=== PATIENT | female | born 1985 | race Caucasian/White ===

== ENCOUNTER 2017-06-12 07:28 | Observation (INO) | payer BC ==
[2017-06-12] MEDS ORDERED: NORMAL SALINE 1,000 ML IV ONE (07:41)
[2017-06-12] MEDS ORDERED: HYDROmorphone HCL 1 MG/ML DISP.SYRIN IV ONE (07:41)
[2017-06-12] MEDS ORDERED: ONDANSETRON HCL/PF 2 MG/ML VIAL IV ONE (07:41)
--- NOTE | 2017-06-12 07:47 | ERNOTE ---
<Ronaldo Cehn - Last Filed: 06/12/17 07:42> Abdominal HPI - Narrative Date of Service: 06/12/17 - General Chief Complaint: Abdominal Pain Time Seen by Provider: 06/12/17 07:34 Source: patient - Immun/Allergies/Home Medications Allergies/Adverse Reactions: Allergies aripiprazole [From Abilify] Adverse Reaction (Intermediate, Verified 06/12/17 07 :35) sleepy methylprednisolone [From Medrol (Raúl)] Adverse Reaction (Intermediate, Verified 06/12/17 07:35) CHEST PAIN Home Medications: HOME MEDICATIONS Valacyclovir HCl [Valtrex] 1,000 mg PO PRN 03/26/12 [Last Taken 12/29/12 08:00 1 tab] Escitalopram Oxalate [Lexapro] 10 mg PO DAILY 06/12/17 [Last Taken Unknown] - History of Present Illness Narrative: This is a 31-year-old female who comes to the emergency department complaining of abdominal pain and vomiting. Patient says she really hasn't had much of an appetite for the last week. Yesterday for lunch she had popcorn chicken. Shortly after eating she developed severe right lower quadrant abdominal pain associated with nausea and vomiting. She vomited but did not feel any better. The pain persisted. She has children at home so she was unable to come to the hospital. She says she feels like she had a fever. It hurts more when she walks, goes over bumps, moves. Better when she lays still. The pain does not radiate anywhere. She has had no hematuria or dysuria. She did have a surgery to get tubal ligation a few months back. The patient denies having shortness of breath or chest pain. No sore throat or runny nose. No recent sick contacts. Bowels have been moving normally. Pain persisted all night seems to be getting a bit worse multiple episodes of vomiting overnight. Has not moved Review of Systems - Review of Systems Constitutional: Present: fever, malaise, other EYE: Present: no symptoms reported ENT: Present: no symptoms reported - subjective fever Respiratory: Present: no symptoms reported Cardiology: Present: no symptoms reported Gastrointestinal/Abdominal: Present: See HPI, nausea, vomiting, abdominal pain, eating less Genitourinary: Present: no symptoms reported Musculoskeletal: Present: no symptoms reported Skin: Present: no symptoms reported Neurological: Present: no symptoms reported Endocrine: Present: no symptoms reported Hematologic/Lymphatic: Present: no symptoms reported Psych: Present: no symptoms reported All Other Systems: All systems neg except as marked - Patient's Past Medical History Patient History - Medical: No pertinent hx Patient History - Cardiac/Respiratory: No pertinent hx Patient History - Cancer: No Hx of Cancer Patient History - Surgical Procedures: Other, Tubal Ligation - Social History Living Situations: home Psych History: No pertinent hx Alcohol Use: none Drug Use: none Physical Exam - Physical Exam General Appearance: Present: wd/wn, alert, no apparent distress Head Exam: Present: normal inspection, no evidence of injury Eye Exam: Normal inspection: bilateral, PERRL: bilateral, EOMI: bilateral Ears, Nose, Throat: Present: normal ENT inspection, normal pharynx Neck: Present: normal inspection, nontender Respiratory: Present: no respiratory distress, normal breath sounds, no accessory muscle use, chest nontender, lungs clear Cardiovascular/Chest: Present: regular rate, rhythm, no murmur, normal peripheral pulses Gastrointestinal/Abdominal: Present: other - patient has positive rales fixed positive heeltap positive obturator positive so as positive pain at McBurney's point positive voluntary and involuntary guarding. Positive rebound. The remainder of the abdomen is soft. Specifically no tenderness in the gallbladder fossa. Negative Jacob sign. Bowel sounds are present Rectal Exam: Present: deferred Back Exam: Present: normal inspection, normal range of motion, no CVA tenderness , no vertebral tenderness Extremity Exam: Present: normal inspection, non-tender, normal range of motion, no edema Neurological Exam: Present: alert, oriented, normal mood/affect, no motor/ sensory deficits Skin Exam: Present: normal color, warm/dry Lymphatic Exam: Present: no adenopathy ED Progress - Vital Signs Vital Signs: Vital Signs 06/12/17 06/12/17 07:31 07:36 Temperature 37.3 C Pulse Rate 95 93 Respiratory 12 12 Rate Blood Pressure 114/82 114/82 O2 Sat by Pulse 98 98 Oximetry - Progress/Reassessment Chief Complaint: Abdominal Pain - Transfer of Care Physician Sign Out: Ronaldo Chen Brief History: 31-year-old female right lower quadrant abdominal pain and vomiting since 1:30 yesterday. Very suspicious for appendicitis. Labs are pending. She will need a CAT scan. Receiving Physician: Shay Carrillo Pending Results: CT/MRI results, Labs, Pain-control, Physician/consult arrival Expected Disposition: Admit Departure Clinical Impression: Acute appendicitis - Departure Disposition: Still a patient Condition: Fair Referrals: Prisca Zheng DO [Primary Care Provider] - <Shay Carrillo - Last Filed: 06/12/17 10:35> ED Progress - Date and Time Seen: Date and Time: 06/12/17 10:33 CT demonstrated acute appendicitis with fecaliths. Dr. Ellis and was made aware. - Vital Signs Vital Signs: Vital Signs 06/12/17 06/12/17 06/12/17 07:31 07:36 08:01 Temperature 37.3 C 36.9 C Pulse Rate 95 93 81 Respiratory 12 12 14 Rate Blood Pressure 114/82 114/82 117/68 O2 Sat by Pulse 98 98 100 Oximetry 06/12/17 06/12/17 06/12/17 08:21 08:30 09:00 Temperature 37.2 C Pulse Rate 98 87 71 Respiratory 15 17 14 Rate Blood Pressure 129/69 129/69 126/66 O2 Sat by Pulse 98 98 99 Oximetry 06/12/17 09:30 Temperature Pulse Rate 74 Respiratory 17 Rate Blood Pressure 130/78 O2 Sat by Pulse 100 Oximetry Plan - Plan Plan: Patient will be transferred to Dr. Ng service the operating room for intervention.
[2017-06-12] MEDS ORDERED: ONDANSETRON HCL/PF 2 MG/ML VIAL ONE (07:51)
[2017-06-12] MEDS ORDERED: HYDROmorphone HCL 2 MG/ML VIAL ONE (07:51)
[2017-06-12 07:57] LABS: Hematocrit 41.6 % (37.0-47.0); Mean Cell Volume 87.6 fl (78-100); Mean Corpuscular Hemoglobin 29.5 pg (27-31); Mean Corpuscular Hgb Conc 33.7 g/dl (32-36); Mean Platelet Volume 9.8 fl (6.0-9.5); Neutrophil # 17.3 K/mm3 (1.3-6.0); Neutrophil % 86.5 % (42-75.0); Platelet Count 277 K/mm3 (150-450); Red Blood Count 4.75 M/mm3 (4.2-5.4); Red Cell Distribution Width 12.7 % (11.5-14.0)
[2017-06-12 08:12] LABS: Albumin * 4.1 gm/dl (3.4-5.0); Anion Gap 14.8 mmol/L (6.8-13.8); BUN/Creatinine Ratio 10.7 (9.0-21.6); Bilirubin, Total 0.5 mg/dL (0.0-1.1); Ca. Corrected For Albumin 8.7 mg/dL (8.4-10.2); Calcium * 9.1 mg/dL (7.9-10.9); Carbon Dioxide 27.6 mmol/L (24-32.6); Potassium 3.4 mmol/L (3.4-4.6); Total Protein 8.2 gm/dL (6.2-8.2)
[2017-06-12] MEDS ORDERED: DIATRIZOATE MEGLUMINE, SODIUM 30 ML BTL ONE (08:28)
[2017-06-12] MEDS ORDERED: DIATRIZOATE MEGLUMINE, SODIUM 30 ML BTL PO ONE (08:32)
[2017-06-12] MEDS ORDERED: KETOROLAC TROMETHAMINE 30 MG/ML VIAL ONE (09:25)
[2017-06-12] MEDS ORDERED: KETOROLAC TROMETHAMINE 30 MG/ML VIAL IV ONE (09:27)
[2017-06-12] MEDS ORDERED: HYDROmorphone HCL 2 MG/ML VIAL IV ONE (09:27)
[2017-06-12] MEDS ORDERED: METOCLOPRAMIDE HCL 5 MG/ML VIAL IV ONE (09:41)
[2017-06-12] MEDS ORDERED: METOCLOPRAMIDE HCL 5 MG/ML VIAL ONE (09:44)
[2017-06-12 10:47] LABS: Urine Bilirubin Negative (NEGATIVE); Urine Ketone Negative (NEGATIVE); Urine Protein Negative (NEGATIVE); Urine Specific Gravity 1.015 SP.GR. (1.005-1.010); Urine Urobilinogen Normal (NORMAL); Urine pH 6.5 pH (5.0-7.0)
[2017-06-12 11:01] LABS: Urine Appearance Clear (CLEAR); Urine Blood 5 /ul (NEGATIVE); Urine Color Yellow; Urine Nitrite Positive (NEGATIVE)
[2017-06-12 11:02] LABS: Urine Bacteria 2+; Urine RBC 0-5 /hpf (0-5); Urine WBC 0-5 /hpf (0-5)
[2017-06-12] MEDS ORDERED: RINGER'S SOLUTION,LACTATED 1,000 ML IV ONE ×3 (11:24→12:42)
[2017-06-12] MEDS ORDERED: CEFOXITIN SODIUM 2 GM in DEXTROSE 5 % IN WATER 100 ML IV ONE ×2 (11:24)
--- NOTE | 2017-06-12 11:39 | HP ---
Chief Complaint - Chief Complaint Date of Service: 06/12/17 Time of Service: 11:33 Chief Complaint: abdominal pain and vomiting History of Present Illness: Started having N/V yesterday, then abdominal pain that moved to right side and got worse. Seen in ER and found to have RLQ tenderness with CT scan showing acute appendicitis - Patient's Past Medical History Patient History - Medical: No pertinent hx Patient History - Cardiac/Respiratory: No pertinent hx Patient History - Cancer: No Hx of Cancer Patient History - Surgical Procedures: Other, Tubal Ligation - Family History Family History:: no untoward family reactions to anesthesia, no familial bleeding tendencies - Social History Living Situations: home Psych History: No pertinent hx Alcohol Use: none Drug Use: none Review Of Systems (GEN) - Review of Systems Generalized/Overall Review: Present: Malaise. Absent: Chills, Fever EENTM: Present: No Symptoms Reported Respiratory: Present: No Symptoms Reported Cardiac: Present: No Symptoms Reported Abdominal: Present: Other - pain, N/V Genitourinary: Present: No Symptoms Reported Musculoskeletal: Present: No Symptoms Reported Neurological: Present: No Symptoms Reported Skin: Present: No Symptoms Reported Endocrine: Present: No Symptoms Reported Misc: All systems neg except as marked Allergies/Adverse Reactions: Allergies Allergy/AdvReac Type Severity Reaction Status Date / Time aripiprazole [From Abilify] AdvReac Intermediate Verified 06/12/17 07:35 methylprednisolone AdvReac Intermediate CHEST PAIN Verified 06/12/17 07:35 [From Medrol (Raúl)] Home Medications: HOME MEDICATIONS Valacyclovir HCl [Valtrex] 1,000 mg PO PRN 03/26/12 [Last Taken 12/29/12 08:00 1 tab] Escitalopram Oxalate [Lexapro] 10 mg PO DAILY 06/12/17 [Last Taken Unknown] Exam - Exam Vital Signs: Vital Signs - Last Taken Temp 37.4 C 06/12/17 11:10 Pulse 74 06/12/17 11:10 Resp 14 06/12/17 11:10 BP 110/70 06/12/17 11:10 Pulse Ox 98 06/12/17 11:10 Constitutional: Present: Alert, Oriented x3, Cooperative, Well developed, Well nourished, Mild distress ENT Exam: Present: normal ENT inspection, other - black tongue Eye Exam: bilateral eye: normal inspection Neck: Present: full range of motion, normal inspection Back Exam: Present: no vertebral tenderness Breasts: Present: Exam deferred Respiratory: Present: lungs clear, normal breath sounds Cardiovascular/Chest: Present: normal peripheral pulses, regular rate, rhythm, no edema, no murmur Peripheral Pulses: dorsalis-pedis (R): 4+, dorsalis-pedis (L): 4+, radial (R): 4 +, radial (L): 4+ Abdomen: Present: other - tender RLQ with rebound Extremity: Present: normal range of motion, normal inspection, no pedal edema, no calf tenderness Skin Exam: Present: normal color, warm/dry Neurologic: Present: lead database administrator II-XII nml as tested, normal cerebellar test, no motor/ sensory deficits Appearance: Present: appropriate appearance, appropriate insight Eye contact: Present: cooperative, good eye contact, normal speech Thoughts: Present: normal thought pattern Diagnostic Studies: Abnormal Lab Results 06/12/17 06/12/17 06/12/17 Range/Units 07:48 07:48 10:40 WBC 20.0 H (4.0-10.5) K/mm3 MPV 9.8 H (6.0-9.5) fl Immature Gran % (Auto) 0.50 H (0.001-0.429) % Immature Gran # (Auto) 0.11 H (0.000-0.0310) K/mm3 Neutrophils % 86.5 H (42-75.0) % Lymphocytes % 5.4 L (20-51) % Neutrophils # 17.3 H (1.3-6.0) K/mm3 Lymphocytes # 1.09 L (1.5-3.5) k/mm3 Monocytes # 1.5 H (0.0-1.0) k/mm3 Sodium 143 H (132-142) mmol/L Plasma Sodium 144 H (130-142) mmol/L Anion Gap 14.8 H (6.8-13.8) mmol/L Random Glucose 154 H (70-110) mg/dL Lipase 51 L (73-393) U/L Urine Blood 5 H (NEGATIVE) /ul Urine Nitrate Positive H (NEGATIVE) Urine Bacteria 2+ H (NONE) Laboratory Results WBC 20.0 K/mm3 (4.0-10.5) H 06/12/17 07:48 RBC 4.75 M/mm3 (4.2-5.4) 06/12/17 07:48 Hgb 14.0 gm/dL (12.5-16.0) 06/12/17 07:48 Hct 41.6 % (37.0-47.0) 06/12/17 07:48 MCV 87.6 fl (78-100) 06/12/17 07:48 MCH 29.5 pg (27-31) 06/12/17 07:48 MCHC 33.7 g/dl (32-36) 06/12/17 07:48 RDW 12.7 % (11.5-14.0) 06/12/17 07:48 Plt Count 277 K/mm3 (150-450) 06/12/17 07:48 MPV 9.8 fl (6.0-9.5) H 06/12/17 07:48 Immature Gran % (Auto) 0.50 % (0.001-0.429) H 06/12/17 07:48 Immature Gran # (Auto) 0.11 K/mm3 (0.000-0.0310) H 06/12/17 07:48 Neutrophils % 86.5 % (42-75.0) H 06/12/17 07:48 Lymphocytes % 5.4 % (20-51) L 06/12/17 07:48 Monocytes % 7.5 % (0.0-9) 06/12/17 07:48 Eosinophils % 0.0 % (0.0-3.0) 06/12/17 07:48 Basophils % 0.1 % (0.0-1.0) 06/12/17 07:48 Nucleated RBC % 0.0 k/mm3 (0-1) 06/12/17 07:48 Neutrophils # 17.3 K/mm3 (1.3-6.0) H 06/12/17 07:48 Lymphocytes # 1.09 k/mm3 (1.5-3.5) L 06/12/17 07:48 Monocytes # 1.5 k/mm3 (0.0-1.0) H 06/12/17 07:48 Eosinophils # 0.0 k/mm3 (0.0-0.7) 06/12/17 07:48 Absolute Basophils 0.0 k/mm3 (0.0-0.1) 06/12/17 07:48 Sodium 143 mmol/L (132-142) H 06/12/17 07:48 Plasma Sodium 144 mmol/L (130-142) H 06/12/17 07:48 Potassium 3.4 mmol/L (3.4-4.6) 06/12/17 07:48 Chloride 104 mmol/L (97-106) 06/12/17 07:48 Carbon Dioxide 27.6 mmol/L (24-32.6) 06/12/17 07:48 Anion Gap 14.8 mmol/L (6.8-13.8) H 06/12/17 07:48 BUN 8 mg/dL (3-23) 06/12/17 07:48 Creatinine 0.75 mg/dL (0.4-1.4) 06/12/17 07:48 Est GFR (Non-Af Amer) 95 mL/min (60-130) 06/12/17 07:48 BUN/Creatinine Ratio 10.7 (9.0-21.6) 06/12/17 07:48 Random Glucose 154 mg/dL (70-110) H 06/12/17 07:48 Calcium 9.1 mg/dL (7.9-10.9) 06/12/17 07:48 Calcium Adj for Albumin 8.7 mg/dL (8.4-10.2) 06/12/17 07:48 Total Bilirubin 0.5 mg/dL (0.0-1.1) 06/12/17 07:48 AST 16 U/L (0-48) 06/12/17 07:48 ALT 20 U/L (19-67) 06/12/17 07:48 Alkaline Phosphatase 72 U/L (50-170) 06/12/17 07:48 Total Protein 8.2 gm/dL (6.2-8.2) 06/12/17 07:48 Albumin 4.1 gm/dl (3.4-5.0) 06/12/17 07:48 Lipase 51 U/L (73-393) L 06/12/17 07:48 Urine Color Yellow 06/12/17 10:40 Urine Appearance Clear (CLEAR) 06/12/17 10:40 Urine pH 6.5 pH (5.0-7.0) 03/23/18 10:40 Ur Specific [place] 1.015 SP.GR. (1.005-1.010) 06/12/17 10:40 Urine Protein Negative mg/dL (NEGATIVE) 06/12/17 10:40 Urine Glucose (UA) Negative mg/dL (NEGATIVE) 06/12/17 10:40 Urine Ketones Negative mg/dL (NEGATIVE) 06/12/17 10:40 Urine Blood 5 /ul (NEGATIVE) H 06/12/17 10:40 Urine Nitrate Positive (NEGATIVE) H 06/12/17 10:40 Urine Bilirubin Negative mg/dl (NEGATIVE) 06/12/17 10:40 Urine Urobilinogen Normal EU/dl (NORMAL) 06/12/17 10:40 Ur Leukocyte Esterase Negative /ul (NEGATIVE) 06/12/17 10:40 Urine RBC 0-5 /hpf (0-5) 06/12/17 10:40 Urine WBC 0-5 /hpf (0-5) 06/12/17 10:40 Ur Epithelial Cells None seen /hpf (0-5) 06/12/17 10:40 Urine Bacteria 2+ (NONE) H 06/12/17 10:40 Urine Culture Comments Culture to follow 06/12/17 10:40 Assessment/Plan - Assessment/Plan (1) Acute appendicitis Assessment: Explained appendicitis and appendectomy. Risks and possible complications of surgery outlined. Expected course explained. Questions answered to her apparent satisfaction and informed consent for appendectomy obtained. Chlorhexidine wipes, IV Mefoxin, SCD's Problem: Acute
[2017-06-12] MEDS ORDERED: BUPIVACAINE HCL/EPINEPHRINE 50 ML VIAL IJ ONE ×2 (12:05)
[2017-06-12] MEDS ORDERED: MUPIROCIN 22 APPL TUBE TP ONE (12:48)
[2017-06-12] MEDS ORDERED: RINGER'S SOLUTION,LACTATED 1,000 ML IV PRN (13:06)
[2017-06-12] MEDS ORDERED: MORPHINE SULFATE 2 MG/ML DISP.SYRIN IV PRN (13:06)
--- NOTE | 2017-06-12 16:02 | OR ---
Operative Report - Dictated Report Narrative: Date of operation 06/12/2017 Preoperative diagnosis: Acute appendicitis Postoperative diagnosis: Acute appendicitis with localized peritonitis Operation: Laparoscopic appendectomy Surgeon: FELIX Sandoval MD Anesthesia: Gen. viviana Fritz CRNA Indications for procedure: The patient is a 31-year-old female who presented to the emergency room with a one-day history of nausea vomiting and abdominal pain which migrated to the right side of the abdomen. She was found to have direct and rebound right lower quadrant tenderness, elevated white blood cell count, and CT scan evidence of acute appendicitis. Findings: Acute appendicitis with localized peritonitis Narrative of procedure: The patient was identified preoperatively, and prior to the administration of anesthetic a multidisciplinary timeout was observed. The patient was placed supine, SCDs were applied, and 2 g of intravenous Mefoxin administered. General endotracheal anesthetic was administered. The patient's abdomen was prepped with Betadine solution, and a generous operating field outlined with 4 sterile towels. The remainder the patient was covered with a sterile disposable drape. A transverse infraumbilical skin incision was made, and dissection was carried along the umbilical stalk until the fascia of the linea alba was encountered. This was incised. The peritoneum was elevated and incised to allow entry into the abdomen under direct vision. A Hussan cannula was placed and the abdomen insufflated with CO2. The laparoscopic camera was introduced and the abdomen briefly explored. Those portions of the liver, stomach, small bowel, and colon visualized appeared normal. There was dark clear fluid in the pelvis. The appendix was not immediately visible. Next under direct vision, 2 additional working ports were inserted through separate skin incisions, one in the suprapubic midline above the bladder and one in the left lower quadrant. The pelvis was suctioned clean and a previous tubal ligation clip on the right tube could be visualized. The apex of the cecum was grasped and retracted cephalad revealing an acutely inflamed appendix with exudate and adherent omentum. The tip of the appendix was grasped and retracted allowing blunt dissection of the omentum from the appendix. The lateral peritoneal attachment of the mesoappendix was then divided and the appendix traced to the base. By retraction/elevation the appendix and mesoappendix were seen to be amenable to division with a MAYNOR stapling device. This was applied across the mesoappendix and then across the base of the appendix. The appendix was parked in the right lower quadrant. The stump of the appendix was seen to be gas and liquid tight. There was a small bleeding vessel on the mesoappendix staple line which was controlled with the brief application of electrocautery. The area was suctioned clean and appeared hemostatic. The pelvis was again suctioned clean. Appendix was then placed in an Endobag. The small working ports were then withdrawn under direct vision to ensure entry site hemostasis. The appendix was removed in conjunction with the Hussan cannula. The pneumoperitoneum was allowed to escape , and after receiving a correct sponge needle and instrument count attention was turned to closing the abdomen. The fascia and peritoneum at the umbilicus were approximated with interrupted sutures of #1 Vicryl. Skin incisions were approximated with interrupted vertical mattress sutures of 4-0 nylon. The operative sites were washed and dried. Dressings of Bactroban ointment and large Band-Aids were applied to the small port sites. The umbilical incision was dressed with Bactroban ointment, 2 x 2, large Band-Aid, and Medipore tape. The operative procedure was terminated at this point. There was no measurable blood loss. 0.5% Marcaine with epinephrine was used for local anesthetic infiltration area the appendix was submitted to pathology. The patient tolerated the anesthetic and procedure well without complication and was transferred to the recovery room awake, extubated, and in stable condition. Reviewed and electronically signed
[2017-06-12] MEDS: CEFOXITIN SODIUM 1 GM in DEXTROSE 5 % IN WATER 100 ML IV SCH ×4 (17:33→22:27)
[2017-06-12] MEDS: oxyCODONE HCL/ACETAMINOPHEN 1 TAB TABLET PO PRN (18:55)
[2017-06-13] MEDS: oxyCODONE HCL/ACETAMINOPHEN 1 TAB TABLET PO PRN ×3 (02:12→10:53)
[2017-06-13] MEDS: CEFOXITIN SODIUM 1 GM in DEXTROSE 5 % IN WATER 100 ML IV SCH ×2 (04:37)
--- NOTE | 2017-06-13 09:13 | DS ---
(1) Acute appendicitis Problem: Acute Qualifiers: Acute appendicitis type: with localized peritonitis Qualified Code(s): K35.3 - Acute appendicitis with localized peritonitis Procedures Performed: see notes below - laparoscopic appendectomy Discharge Location: Home Disposition: Home self-care Condition: Good Discharge Activity: Activity as tolerated, No Lifting Discharge Diet: General/regular food Problem Oriented Discharge Instructions to Patient/Family: Laparoscopic Appendectomy, Adult, Care After, [id number] Additional Patient Instructions (free text): to call office to make f/u appointment for Thu06/19/17 Complete Home Medications List: Complete Home Medication List: Valacyclovir HCl [Valtrex] 1,000 mg PO PRN 03/26/12 Escitalopram Oxalate [Lexapro] 10 mg PO DAILY 06/12/17
[2017-06-13 11:01] VITALS: BP 149/85
== END 2017-06-13 11:00 | disposition home or self-care (01) ==
LOC: ER 07:28 → AMB 10:44 → MS 12:47 → INTOOBSV 12:47
PROVIDERS: ADMIT Surgery; ATTEND Surgery
PROC: 0DTJ4ZZ Resection of Appendix, Percutaneous Endoscopic Approach (ICD-10-PCS; principal; 2017-06-12)
DX: K35.3 Acute appendicitis with localized peritonitis (principal)
CPT/HCPCS: 36415; 44970; 74177; 80053; 81001; 83690; 85025; 87077; 87086; 87186; 88304; 96365; 96366; 96375; 96376; 99285; G0378; J2405